=== PATIENT | male | born 1950 | race Caucasian/White ===

== ENCOUNTER → 2016-12-28 | Outpatient (CLI) | payer OTHER | LOC: KOH-I 09:16 | DX: K42.9 Umbilical hernia without obstruction or gangrene (principal); L02.211 Cutaneous abscess of abdominal wall; K43.9 Ventral hernia without obstruction or gangrene; R93.3 Abnormal findings on diagnostic imaging of other parts of digestive tract | CPT/HCPCS: 74177; Q9962 ==

== ENCOUNTER 2020-09-09 11:37 | Emergency (ER) | payer OTHER, MEDICARE ==
[~2020-09-09 11:37] MED LIST: BREO ELLIPTA 21 EACH INH; ELIQUIS2.5 MG PO; FOLIC ACID 1 MG1 MG PO; INSPRA 25 MG TA25 MG PO; K-DUR TAB 10 M10 MEQ PO; LASIX40 MG PO; LIPITOR20 MG PO; LOPRESSOR 25 MG25 MG PO; METOPROLOL SUCC25 MG PO; OMNICEF 300 MG300 MG PO; VITAMIN B-121000 MCG PO; VITAMIN D35000 UNI1 PO
== END 2020-09-09 17:05 | disposition home or self-care (01) ==
LOC: ER1 11:37
DX: U07.1 COVID-19 (principal); I48.91 Unspecified atrial fibrillation; J44.9 Chronic obstructive pulmonary disease, unspecified; I10 Essential (primary) hypertension; Z23 Encounter for immunization
CPT/HCPCS: 99283; M0239

== ENCOUNTER → 2021-06-09 | Outpatient (CLI) | payer OTHER, MEDICARE | LOC: KOH-I 09:57 | DX: J44.1 Chronic obstructive pulmonary disease with (acute) exacerbation (principal); I50.9 Heart failure, unspecified | CPT/HCPCS: 71046 ==

== ENCOUNTER → 2021-06-09 | Outpatient (CLI) | payer OTHER ==
[2021-06-09 16:57] LABS: BUN/CREATININE RATIO 17 (0-10)
== END ==
LOC: LAB 16:16
PROVIDERS: Nurse Practitioner Family
DX: I50.9 Heart failure, unspecified (principal)
CPT/HCPCS: 36415; 80048; 83880

== ENCOUNTER → 2022-02-27 | Outpatient (CLI) | payer OTHER ==
[2022-02-27 13:11] LABS: HEMOGLOBIN 15.6 gm/dl (14.0-17.5); RED BLOOD COUNT 4.9 M/UL (4.20-5.50); WHITE BLOOD COUNT 12.4 K/UL (4.5-11.0)
[2022-02-27 13:47] LABS: BUN/CREATININE RATIO 18 (0-10)
== END ==
LOC: LAB 12:36
PROVIDERS: Nurse Practitioner Family
DX: I50.9 Heart failure, unspecified (principal)
CPT/HCPCS: 36415; 71046; 80053; 83880; 85025

== ENCOUNTER → 2022-04-18 | Outpatient (CLI) | payer OTHER ==
[2022-04-18 09:56] LABS: HEMOGLOBIN 16.1 gm/dl (14.0-17.5); RED BLOOD COUNT 5.02 M/UL (4.20-5.50); WHITE BLOOD COUNT 9.4 K/UL (4.5-11.0)
== END ==
LOC: LAB 09:24
PROVIDERS: Physician Assistant
DX: I83.209 Varicose veins of unspecified lower extremity with both ulcer of unspecified site and inflammation (principal)
CPT/HCPCS: 36415; 83605; 85025

== ENCOUNTER → 2022-04-25 | Outpatient (CLI) | payer OTHER ==
[~2022-04-25] VITALS: Ht 180.3 cm; Wt 118.8 kg
== END ==
LOC: OPSV 18:37
DX: A49.8 Other bacterial infections of unspecified site (principal); L08.9 Local infection of the skin and subcutaneous tissue, unspecified
CPT/HCPCS: 96372; J0713

== ENCOUNTER → 2022-04-25 | Outpatient (CLI) | payer OTHER ==
[~2022-04-25] VITALS: Ht 177.8 cm; Wt 118.8 kg
== END ==
LOC: OPSV 07:00
DX: L08.9 Local infection of the skin and subcutaneous tissue, unspecified (principal); B96.5 Pseudomonas (aeruginosa) (mallei) (pseudomallei) as the cause of diseases classified elsewhere
CPT/HCPCS: 96372; J0713

== ENCOUNTER → 2022-04-26 | Outpatient (CLI) | payer OTHER | LOC: EROP 18:56 → OPSV 19:00 | DX: A49.8 Other bacterial infections of unspecified site (principal); L08.9 Local infection of the skin and subcutaneous tissue, unspecified | CPT/HCPCS: 96372; J0713 ==

== ENCOUNTER → 2022-04-26 | Outpatient (CLI) | payer OTHER | LOC: OPSV 07:00 | DX: L08.9 Local infection of the skin and subcutaneous tissue, unspecified (principal); B96.5 Pseudomonas (aeruginosa) (mallei) (pseudomallei) as the cause of diseases classified elsewhere | CPT/HCPCS: 96372; J0713 ==

== ENCOUNTER → 2022-04-27 | Outpatient (CLI) | payer OTHER | LOC: OPSV 07:00 | DX: A49.8 Other bacterial infections of unspecified site (principal); L08.9 Local infection of the skin and subcutaneous tissue, unspecified | CPT/HCPCS: 96372; J0713 ==

== ENCOUNTER → 2022-04-27 | Outpatient (CLI) | payer OTHER | LOC: OPSV 19:00 → EROP 19:23 | DX: L08.9 Local infection of the skin and subcutaneous tissue, unspecified (principal); B96.5 Pseudomonas (aeruginosa) (mallei) (pseudomallei) as the cause of diseases classified elsewhere | CPT/HCPCS: 96372; J0713 ==

== ENCOUNTER → 2022-04-28 | Outpatient (CLI) | payer OTHER | LOC: OPSV 19:00 | DX: L08.89 Other specified local infections of the skin and subcutaneous tissue (principal); B96.5 Pseudomonas (aeruginosa) (mallei) (pseudomallei) as the cause of diseases classified elsewhere | CPT/HCPCS: 96372; J0713 ==

== ENCOUNTER → 2022-04-28 | Outpatient (CLI) | payer OTHER | LOC: OPSV 06:45 | DX: L08.9 Local infection of the skin and subcutaneous tissue, unspecified (principal); B96.5 Pseudomonas (aeruginosa) (mallei) (pseudomallei) as the cause of diseases classified elsewhere | CPT/HCPCS: 96372; J0713 ==

== ENCOUNTER → 2022-04-29 | Outpatient (CLI) | payer OTHER | LOC: OPSV 19:00 → EROP 19:04 | DX: L08.89 Other specified local infections of the skin and subcutaneous tissue (principal) | CPT/HCPCS: 96372; J0713 ==

== ENCOUNTER → 2022-04-29 | Outpatient (CLI) | payer OTHER | LOC: OPSV 06:46 | DX: L08.9 Local infection of the skin and subcutaneous tissue, unspecified (principal); A49.8 Other bacterial infections of unspecified site | CPT/HCPCS: 96372; J0713 ==

== ENCOUNTER → 2022-04-30 | Outpatient (CLI) | payer OTHER | LOC: OPSV 07:00 | DX: L08.9 Local infection of the skin and subcutaneous tissue, unspecified (principal); B96.5 Pseudomonas (aeruginosa) (mallei) (pseudomallei) as the cause of diseases classified elsewhere | CPT/HCPCS: 96372; J0713 ==

== ENCOUNTER → 2022-04-30 | Outpatient (CLI) | payer OTHER | LOC: EROP 19:40 | DX: L08.9 Local infection of the skin and subcutaneous tissue, unspecified (principal); A49.9 Bacterial infection, unspecified | CPT/HCPCS: 96365; 96372; J0713 ==

== ENCOUNTER → 2022-05-01 | Outpatient (CLI) | payer OTHER ==
[~2022-05-01] VITALS: Ht 177.8 cm; Wt 118.8 kg
== END ==
LOC: OPSV 07:00 → EROP 19:25
DX: L08.89 Other specified local infections of the skin and subcutaneous tissue (principal); B96.5 Pseudomonas (aeruginosa) (mallei) (pseudomallei) as the cause of diseases classified elsewhere
CPT/HCPCS: 96372; J0713

== ENCOUNTER → 2022-05-01 | Outpatient (CLI) | payer OTHER | LOC: OPSV 07:36 | DX: L08.9 Local infection of the skin and subcutaneous tissue, unspecified (principal); B96.5 Pseudomonas (aeruginosa) (mallei) (pseudomallei) as the cause of diseases classified elsewhere | CPT/HCPCS: 96372; J0713 ==

== ENCOUNTER → 2022-05-07 | Outpatient (CLI) | payer OTHER | LOC: EROP 18:57 → OPSV 19:00 | DX: A49.8 Other bacterial infections of unspecified site (principal) | CPT/HCPCS: 96365; J0713 ==

== ENCOUNTER → 2022-05-07 | Outpatient (CLI) | payer OTHER ==
[~2022-05-07] VITALS: Ht 180.3 cm; Wt 118.8 kg
== END ==
LOC: OPSV 06:05
DX: A49.8 Other bacterial infections of unspecified site (principal)
CPT/HCPCS: 96365; J0713

== ENCOUNTER → 2022-05-08 | Outpatient (CLI) | payer OTHER ==
[~2022-05-08] VITALS: Ht 180.3 cm; Wt 118.8 kg
== END ==
LOC: OPSV 07:00
DX: A49.8 Other bacterial infections of unspecified site (principal)
CPT/HCPCS: 96365; J0713

== ENCOUNTER → 2022-05-08 | Outpatient (CLI) | payer OTHER | LOC: EROP 18:40 → OPSV 19:00 | DX: A49.8 Other bacterial infections of unspecified site (principal) | CPT/HCPCS: 96365; J0713 ==

== ENCOUNTER → 2022-05-09 | Outpatient (CLI) | payer OTHER ==
[~2022-05-09] VITALS: Ht 180.3 cm; Wt 118.8 kg
[2022-05-09 12:09] LABS: BUN/CREATININE RATIO 14 (0-10)
== END ==
LOC: OPSV 07:00 → LAB 11:24
PROVIDERS: Physician Assistant
DX: R60.9 Edema, unspecified (principal)
CPT/HCPCS: 36415; 80048; 96365; J0713

== ENCOUNTER → 2022-05-09 | Outpatient (CLI) | payer OTHER ==
[~2022-05-09] VITALS: Ht 180.3 cm; Wt 120.7 kg
== END ==
LOC: OPSV 19:00
DX: A49.8 Other bacterial infections of unspecified site (principal)
CPT/HCPCS: 96365; J0713

== ENCOUNTER → 2022-05-10 | Outpatient (CLI) | payer OTHER | LOC: OPSV 19:00 → EROP 19:02 | DX: A49.8 Other bacterial infections of unspecified site (principal) | CPT/HCPCS: J0713 ==

== ENCOUNTER → 2022-05-10 | Outpatient (CLI) | payer OTHER ==
[~2022-05-10] VITALS: Ht 180.3 cm; Wt 118.8 kg
== END ==
LOC: OPSV 07:00
DX: A49.8 Other bacterial infections of unspecified site (principal)
CPT/HCPCS: 96365; J0713

== ENCOUNTER → 2022-05-11 | Outpatient (CLI) | payer OTHER ==
[~2022-05-11] VITALS: Ht 180.3 cm; Wt 118.8 kg
== END ==
LOC: OPSV 07:00
DX: A49.8 Other bacterial infections of unspecified site (principal)
CPT/HCPCS: 96365; J0713

== ENCOUNTER → 2022-05-11 | Outpatient (CLI) | payer OTHER | LOC: OPSV 19:00 → EROP 19:07 | DX: B96.5 Pseudomonas (aeruginosa) (mallei) (pseudomallei) as the cause of diseases classified elsewhere (principal) | CPT/HCPCS: 96365; J0713 ==

== ENCOUNTER → 2022-05-12 | Outpatient (CLI) | payer OTHER | LOC: OPSV 19:00 → EROP 19:46 | DX: A49.8 Other bacterial infections of unspecified site (principal) | CPT/HCPCS: 96365; J0713 ==

== ENCOUNTER → 2022-05-12 | Outpatient (CLI) | payer OTHER | LOC: OPSV 06:40 → EROP 06:48 → OPSV 07:00 | DX: A49.8 Other bacterial infections of unspecified site (principal) | CPT/HCPCS: 96365; J0713 ==

== ENCOUNTER → 2022-05-13 | Outpatient (CLI) | payer OTHER | LOC: EROP 18:00 → OPSV 19:00 | DX: A49.8 Other bacterial infections of unspecified site (principal) | CPT/HCPCS: 96365; J0713 ==

== ENCOUNTER → 2022-05-13 | Outpatient (CLI) | payer OTHER | LOC: EROP 06:57 → OPSV 07:00 → EROP 07:00 | DX: A49.8 Other bacterial infections of unspecified site (principal) | CPT/HCPCS: 96365; J0713 ==